=== PATIENT | female | born 1975 | race Hispanic/Latino ===

== ENCOUNTER 2023-03-02 23:50 | Emergency (ER) | payer BC, OTHER ==
[~2023-03-02] VITALS: Ht 165.1 cm; Wt 84.8 kg
[2023-03-03] MEDS ORDERED: 0.9%NACL 1000ML 1,000 ML IV ONE (01:30)
[2023-03-03 01:47] LABS: BASOPHILS # (AUTO) 0.04 K/uL (0.00-0.20); BASOPHILS % (AUTO) 0.4 % (0.0-5.0); HEMATOCRIT 39.7 % (36-48); IMMATURE GRANULOCYTE ABSOLUTE 0.06 K/uL (0-1); LYMPHOCYTES # (AUTO) 0.6 K/uL (1.0-4.8); LYMPHOCYTES % (AUTO) 5.2 % (21.0-51.0); MEAN CORPUSCULAR HEMOGLOBIN 28.4 pg (27.0-33.0); MEAN CORPUSCULAR VOLUME 86.1 fL (79-99); MONOCYTES # (AUTO) 0.5 K/uL (0.1-1.0); MONOCYTES % (AUTO) 4.6 % (3.0-13.0); NEUTROPHILS # (AUTO) 9.6 K/uL (1.8-7.7); NEUTROPHILS % (AUTO) 89.2 % (40.0-77.0); PLATELET COUNT (AUTO) 273 K/uL (130-400); RED BLOOD CELL COUNT(AUTO) 4.61 MIL/uL (4.00-5.50); RED CELL DISTRIBUTION WIDTH 13.9 % (11.0-15.5); WHITE BLOOD COUNT (AUTO) 10.7 K/uL (4.8-10.8)
[2023-03-03 01:57] LABS: CREATININE 0.8 mg/dL (0.5-1.5); INR < 0.93 (0.85-1.15); POTASSIUM 3.4 mmol/L (3.5-5.1); PROTHROMBIN TIME 10.8 SEC (9.6-11.6)
[2023-03-03 02:01] LABS: ALBUMIN 3.9 g/dL (3.5-5.0); BILIRUBIN,TOTAL 0.6 mg/dL (0.2-1.0); TOTAL PROTEIN, SERUM 7.7 g/dL (6.0-8.3)
[2023-03-03 02:14] LABS: ADD UA MICROSCOPIC YES; APPEARANCE,URINE CLOUDY (CLEAR); BILIRUBIN,URINE NEGATIVE (NEGATIVE); COLOR,URINE LIGHT-YELLOW (YELLOW); GLUCOSE, URINE (UA) NEGATIVE (NEGATIVE); KETONES,URINE 10 mg/dL (NEGATIVE); LEUKOCYTE ESTERASE ,URINE 500 Leu/uL (NEGATIVE); NITRATE,URINE NEGATIVE (NEGATIVE); OCCULT BLOOD,URINE SMALL (NEGATIVE); PH,URINE 5.5 (5.0-8.0); PROTEIN,URINE NEGATIVE (NEGATIVE); UROBILINOGEN,URINE 0.2 mg/dL (0.2-1.0)
[2023-03-03 02:26] LABS: WBC MORPHOLOGY CONSISTENT W/DIFF
[2023-03-03 02:28] LABS: BACTERIA,URINE RARE /HPF (None Seen); MUCUS,URINE RARE LPF (None Seen); SQUAMOUS EPITHELIAL CELL,UR MOD /HPF (0-2); WBC CLUMP FEW /HPF (0-1); WBC,URINE 26-50 /HPF (0-1)
[2023-03-03] MEDS ORDERED: NIRM1TAB PO (02:52)
[2023-03-03] MEDS ORDERED: CEFU500T67 PO (02:52)
[2023-03-03] MEDS ORDERED: ONDA-104 PO (02:52)
[2023-03-03] MEDS ORDERED: ALBU90AE2 IH (02:53)
[2023-03-03] MEDS ORDERED: CEFTRIAXONE 1G VIAL IVPB ONE (03:00)
[2023-03-03 03:39] VITALS: BP 132/74; PULSE 84; RESP 18; O2SAT 99
== END 2023-03-03 03:41 | disposition home or self-care (01) ==
LOC: EDH 23:50
DX: N39.0 Urinary tract infection, site not specified (principal); Z88.0 Allergy status to penicillin
CPT/HCPCS: 99284; 96360; 82550; 84484; 80053; 83880; 84703; 85025; 85610; 87088; 81001; 36415; 93005; 71045; J7030